=== PATIENT | female | born 1960 | race Caucasian/White ===

== ENCOUNTER 2022-05-24 16:07 | Emergency (ER) | payer OTHER, SELFPAY ==
[2022-05-24 16:21] VITALS: BP 175/95; PULSE 70; RESP 18; TEMP 36.6; O2SAT 100; BMI 43.0
--- NOTE | 2022-05-24 16:57 | ED_ITS ---
HPI - Nausea/Vomiting/Diarrhea General: Chief complaint: Nausea/Vomiting/Diarrhea Stated complaint: Abd Pains, N/V/D Time Seen by Provider: 05/24/22 16:40 Source: patient Mode of arrival: ambulatory History of Present Illness: 61-year-old female presents emergency room complaining diarrhea for the last 11 days. States it began after she ate something that she thought was bad. She denies any medic easy melena hematemesis or coffee-ground emesis she did vomit once this morning and was been a little bit dizzy. She has had predominantly watery and very loose stools. She had seen her doctor she took some Imodium at times but it really did not seem to help. She not been on any antibiotics recently. She has some mild abdominal discomfort but no significant pain no dysuria urgency or frequency no fever sweats or chills. She denies any chest pain or shortness of breath. MD elicited complaint: nausea, vomiting and diarrhea (Labs 11 days) Onset (ago): day(s) (11 days) Description of diarrhea: watery and semi-solid Associated nausea: Yes (1 episode) Associated abdominal pain: Yes (Mild) Location of pain: Diffuse Severity: mild Quality: aching Exacerbating factors: none Relieving factors: none Context: possible food poisoning Associated symtoms: Reports dizziness, fecal incontinence, anorexia and nausea (1 episode); Denies altered mental status, anxiety, bloating, change in vision, chest pain, cough, diaphoresis, decreased urine output, dysuria, epistaxis, fatigue, fevers/chills, headache(s), malaise, myalgias, numbness, palpitations, rash, short of breath, syncope, tenesmus, tinnitus or weakness Review of Systems Const: Denies: fever(s), chills, fatigue, malaise or diaphoresis Eyes: Denies: change in vision ENMT: Denies: tinnitus or epistaxis Card: Denies: chest pain, palpitations, irregular heart rhythm, edema or syncope Resp: Denies: dyspnea, productive cough or non-productive cough GI: Reports: abdominal pain, nausea (1 episode), vomiting, diarrhea, GI cramping and fecal incontinence; Denies: hematemesis or bloating : Denies: flank pain, difficulty voiding, dysuria, urinary frequency or urinary urgency Musc: Denies: neck pain or back pain Skin/Breast: Denies: rash or pruritus Neuro: Reports: dizziness; Denies: headache(s) Psych: Denies: anxiety Physical Exam Const: COMMON NORMALS: no acute distress EXAM LIMITATIONS: no altered mental status GENERAL APPEARANCE: cooperative and comfortable ORIENTATION/CONSCIOUSNESS: Yes awake, Yes oriented to person, Yes oriented to place and Yes oriented to time HENMT: COMMON NORMALS: normocephalic, atraumatic and hearing grossly normal bilaterally HEAD & SCALP: normocephalic and atraumatic Resp: COMMON NORMALS: normal respiratory effort, No retractions, No use of accessory muscles and clear to auscultation bilaterally AUSCULTATION: clear to auscultation bilaterally Cardio: COMMON NORMALS: regular rate, regular rhythm and No murmurs present (Cardio) RATE: regular rate RHYTHM: regular rhythm GI: COMMON NORMALS: Soft to palpation and No hepatosplenomegaly present AUSCULTATION: Yes normoactive bowel sounds PALPATION: Yes Soft to palpation, No Tenderness to palpation present (GI), No Guarding due to palpation present (GI) and Yes No hepatosplenomegaly present Extremity: COMMON NORMALS: normal to inspection, capillary refill normal, no clubbing, cyanosis or edema, no calf tenderness and no pedal edema Neuro: SENSORIUM/ORIENTATION: Yes oriented to person, Yes oriented to place and Yes oriented to time Skin: COMMON NORMALS: no rashes or lesions noted GENERAL SKIN EXAM: no rashes or lesions noted Course Vital Signs: Vital signs: Vital Signs Temperature 97.9 F 05/24/22 16:21 Pulse Rate 70 05/24/22 16:21 Respiratory Rate 18 05/24/22 16:21 Blood Pressure 175/95 05/24/22 16:21 Pulse Oximetry 100 05/24/22 16:21 Oxygen Delivery Me thod 05/24/22 16:21 MDM - Nausea/Vomiting/Diarrhea Medical Decision Making Reviewed labs with the patient. Triage nurse had written that a stool been sent for PC DF evidently that was done with a doctor in [place]. Patient now stating she really does not feel that bad. And she does not think she is going to be able to give us a stool sample. Suspect some of this is more functional. We will have her do a clear liquid diet use promethazine as needed finish her IV fluids we will try to get stool samples for C. difficile culture ova and parasites done if she is able to provide a stool sample. Medical Records I reviewed the patient's medical records. Lab Data I reviewed the patient's lab results. : 05/24/22 17:11 05/24/22 17:11 Laboratory Results WBC 4.0 10^3/uL (4.0-10.0) 05/24/22 17:11 RBC 4.60 10^6/uL (4.1-5.3) 05/24/22 17:11 Hgb 13.8 g/dL (11.5-15.3) 05/24/22 17:11 Hct 41.0 % (37.0-47.0) 05/24/22 17:11 MCV 89.1 fl (81-99) 05/24/22 17:11 MCH 30.0 pg (28.0-34.0) 05/24/22 17:11 MCHC 33.7 g/dL (30.0-36.0) 05/24/22 17:11 RDW 13.1 % (12.1-15.1) 05/24/22 17:11 Plt Count 179 10^3/cmm (130-400) 05/24/22 17:11 MPV 10.2 fL (7.4-10.4) 05/24/22 17:11 Neut % (Auto) 69.0 % 05/24/22 17:11 Lymph % (Auto) 24.0 % 05/24/22 17:11 Alfalfa % (Auto) 5.4 % 05/24/22 17:11 Eos % (Auto) 1.2 % 05/24/22 17:11 Baso % (Auto) 0.2 % 05/24/22 17:11 Neut # (Auto) 2.78 10^3/uL (1.8-7.7) 05/24/22 17:11 Lymph # (Auto) 1.0 10^3/uL (0.8-4.8) 05/24/22 17:11 Alfalfa # (Auto) 0.2 10^3/uL (0.2-0.9) 05/24/22 17:11 Eos # (Auto) 0.1 10^3/uL (0.0-0.8) 05/24/22 17:11 Baso # (Auto) 0.0 10^3/uL (0.0-0.1) 05/24/22 17:11 Nucleated RBC % (auto) 0 % 05/24/22 17:11 Nucleated RBCs # 0.0 /100WBC 05/24/22 17:11 Urine Color Yellow (Yellow) 05/24/22 16:47 Urine Appearance Clear (CLEAR) 05/24/22 16:47 Urine pH 8 (5-7) H 05/24/22 16:47 Ur Specific [place] 1.010 (1.005-1.030) 05/24/22 16:47 Urine Protein Neg (Negative) 05/24/22 16:47 Urine Glucose (UA) Norm (Normal) 05/24/22 16:47 Urine Ketones Negative (Negative) 05/24/22 16:47 Urine Blood Neg (Negative) 05/24/22 16:47 Urine Nitrate Negative (Negative) 05/24/22 16:47 Urine Bilirubin Neg (Negative) 05/24/22 16:47 Prot Sulfosalicylic Acd Negative (Negative) 05/24/22 16:47 Urine Urobilinogen Neg mg/dL (Negative) 05/24/22 16:47 Ur Leukocyte Esterase Negative (Negative) 05/24/22 16:47 Discharge Plan Discharge Patient Disposition: Home Clinical Impression: Diarrhea Condition: Stable Prescriptions: New promethazine 25 mg tablet 25 mg PO Q6H PRN (Reason: nausea and vomiting) Qty: 20 0RF Discharge Orders: Discharge ED (Routine); Ordered 05/24/22 Ordered By: Genaro Last Discharge Diet: Full LIquid Discharge Activity: Increase activity as tolerated Patient Instructions: Opioid Safety, Pain Management Activity Restrictions/Additional Instructions: Full liquid diet. Cultures were done of your stool today we will contact you those and they become available. Use the promethazine for nausea and vomiting. Follow-up with your doctor early next week. Coding Level of Care Code ED Speed Runner for Chg Fwd Exam Detailed
[2022-05-24 17:06] LABS: Add Urine Microscopic? NO; Charge for UA Resulting for Rev
[2022-05-24] MEDS: lactated ringers 1,000 ML 999 ML IV ×2 (17:10→18:06)
[2022-05-24] MEDS: ondansetron 2 mg/ML SDV 2 mL 4 MG IVP (17:10)
[2022-05-24 17:11] LABS: Bilirubin Urine Neg (Negative); Blood Urine Neg (Negative); Glucose Urine UA Norm (Normal); Ketones Urine Negative (Negative); Leukocyte Esterase Urine Negative (Negative); Nitrate Urine Negative (Negative); Protein Urine Neg (Negative); Sulfosalicylic Acid Urine Negative (Negative); Urine Appearance Clear (CLEAR); Urine Color Yellow (Yellow); Urobilinogen Urine Neg (Negative); pH Urine 8 (5-7)
[2022-05-24 17:35] LABS: Basophils % 0.2 %; Eosinophils # 0.1 10^3/uL (0.0-0.8); Eosinophils % 1.2 %; Hemoglobin 13.8 g/dL (11.5-15.3); Mean Corpuscular HGB Conc 33.7 g/dL (30.0-36.0); Mean Corpuscular Volume 89.1 fl (81-99); Mean Platelet Volume 10.2 fL (7.4-10.4); Monocytes # 0.2 10^3/uL (0.2-0.9); Monocytes % 5.4 %; Neutrophils # 2.78 10^3/uL (1.8-7.7); Nucleated Red Blood Cells % 0 %; Platelet Count 179 10^3/cmm (130-400); Red Cell Distribution Width 13.1 % (12.1-15.1)
[2022-05-24 18:04] LABS: Alanine Aminotransferase 18 U/L (0-33); Albumin Level 4.5 g/dL (3.5-5.2); Alkaline Phosphatase 84 U/L (35-105); Aspartate Amino Transferase 23 U/L (0-32); Blood Urea Nitrogen 11 mg/dL (8-23); Calcium 9.5 mg/dL (8.5-10.5); Carbon Dioxide 30 mmol/L (22-29); Chloride 101 mmol/L (98-107); Globulin 2.1 g/dL (1.3-4.6); Glucose 96 mg/dL (65-115); Osmolality Calculated 289 mOsm/kg (285-295); Sodium 140 mmol/L (136-145); Total Bilirubin 0.6 mg/dL (0.15-1.2); Total Protein 6.6 g/dL (6.6-8.7)
[2022-05-24 18:07] LABS: Anion Gap 12.8 (5-19); Potassium 3.8 mmol/L (3.5-5.1)
[2022-05-24 19:59] VITALS: BP 154/68; PULSE 70; RESP 18; O2SAT 99
== END 2022-05-24 19:50 | disposition home or self-care (01) ==
PROVIDERS: Emergency Provider Family Medicine
DX: R19.7 Diarrhea, unspecified (principal)
CPT/HCPCS: 80053; 81003; 85025; 96361; 96374; 99284; J2405